=== PATIENT | male | born 1940 ===

== ENCOUNTER 2017-05-03 16:41 | Emergency (ER) | payer MEDICARE, OTHER ==
[2017-05-03] MEDS ORDERED: DIPH,PERTUS(ACELL)TETVAC-LF 0.5 ML VIAL IM ONE (17:23)
--- NOTE | 2017-05-03 17:25 | ED ---
Lower Extremity Injury HPI - General Chief Complaint: Extremity Injury, Lower Stated Complaint: Toe Pain Source: patient Mode of arrival: wheelchair Limitations: physical limitation - History of Present Illness Initial Comments: Patient is a 76-year-old male who presents for evaluation after a car was wasted down onto his left toe. Past medical history as below. 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 A lift was lowering down a vehicle. It landed on his left toe. There is compression for several moments as the car was being lifted up. This occurred around 425. There is bleeding on the left first digit. Stable to walk on it. He was wearing soft toed lower first. The car did not cut through the shoe. He is on aspirin and Plavix as he has a coronary stent. Is currently bleeding. It is unknown when he got his last eat at. He denies any other associated symptoms including fevers, headaches, chest pain, shortness breath, cough, nausea or vomiting or diarrhea, pain or burning with urination. - Related Data Home Medications Medication Instructions Recorded Confirmed Aspirin 81 mg PO DAILY 05/03/17 05/03/17 Clopidogrel Bisulfate [Plavix] 75 mg PO DAILY 05/03/17 05/03/17 Lipitor (Unk Dose) 1 tab PO HS 05/03/17 05/03/17 Lisinopril [Zestril] 10 mg PO DAILY 05/03/17 05/03/17 Metoprolol Succinate [Toprol XL] 25 mg PO DAILY 05/03/17 05/03/17 Previous Rx's Medication Instructions Recorded Cephalexin [Keflex] 500 mg PO BID #14 capsule 05/03/17 Hydrocodone/Acetaminophen [Glasco 1 tab PO Q6HR PRN #10 tab 05/03/17 5-325] Allergies Allergy/AdvReac Type Severity Reaction Status Date / Time No Known Allergies Allergy Verified 05/03/17 16:46 Review of Systems ROS Statement: Those systems with pertinent positive or pertinent negative responses have been documented in the HPI. ROS Other: All systems not noted in ROS Statement are negative. Past Medical History Past Medical History: Hyperlipidemia History of Any Multi-Drug Resistant Organisms: None Reported Past Surgical History: Heart Catheterization With Stent Past Psychological History: No Psychological Hx Reported Smoking Status: Current some day smoker Past Alcohol Use History: None Reported Past Drug Use History: None Reported General Exam Limitations: physical limitation General appearance: alert, in no apparent distress Head exam: Present: atraumatic, normocephalic, normal inspection Eye exam: Present: normal appearance, PERRL, EOMI. Absent: scleral icterus, conjunctival injection, periorbital swelling ENT exam: Present: normal exam, mucous membranes moist Neck exam: Present: normal inspection. Absent: tenderness, meningismus, lymphadenopathy Respiratory exam: Present: normal lung sounds bilaterally. Absent: respiratory distress, wheezes, rales, rhonchi, stridor Cardiovascular Exam: Present: regular rate, normal rhythm, normal heart sounds. Absent: systolic murmur, diastolic murmur, rubs, gallop, clicks GI/Abdominal exam: Present: soft, normal bowel sounds. Absent: distended, tenderness, guarding, rebound, rigid Extremities exam: Present: normal inspection, full ROM, normal capillary refill , other (Pain to the first digit on the left toe. Small degree of blood oozing from a small superficial laceration. Full range of motion of the first and second digits of the left toe. Sensation intact. Good cap refill.). Absent: tenderness, pedal edema, joint swelling, calf tenderness Back exam: Present: normal inspection Neurological exam: Present: alert, oriented X3, CN II-XII intact Psychiatric exam: Present: normal affect, normal mood Skin exam: Present: warm, dry, intact, normal color, other (1 cm laceration at the nailbed of the first digit.). Absent: rash Course Vital Signs 05/03/17 05/03/17 16:46 18:21 Temperature 97.0 F L 97.3 F L Pulse Rate 89 82 Respiratory 17 18 Rate Blood Pressure 129/74 110/60 O2 Sat by Pulse 93 L 96 Oximetry Procedures - Laceration Laceration #1 Consent Obtained: verbal consent Time Out Performed: Yes Indication: laceration Site: other (First digit left toe) Description: linear Depth: simple, single layer Anesthetic Used: lidocaine 1% Anesthesia Technique: nerve block Pre-repair: irrigated extensively Type of Sutures: nylon Size of Sutures: 4-0 Number of Sutures: 2 Technique: simple, interrupted Patient Tolerated Procedure: well, no complications Additional Comments: Placed 2, 4-0 nylon sutures with good wound approximation. Improved bleeding. Still some oozing at the base of the nail bed. Bacitracin over the wound. Compression dressing. Medical Decision Making - Medical Decision Making -Patient is a 76-year-old male presents for evaluation after a car was low were down on his left first and second digits. Small degree of bruising. Small superficial laceration. Will order plain films of the toe and the foot. 1900: Patient has distal phalanx fracture of the first and second digits of the left foot. nerve block of the first digit on the left foot. Injected 2 mL of 1 % lidocaine. Trephinated the left toe due to the development of a sublingual hematoma. thoroughly irrigated the laceration with 1 L of normal saline. Repaired a superficial laceration to left first digit with 2, 4-0 nylon sutures. Placed bacitracin over. Wrapped and rain taped the first 2 digits. Walking boot. discussed wound care with the patient. Discussed signs and symptoms of cellulitis and infection. We'll discharge home with Keflex. Glasco for pain. Elevate the left leg as much as possible. Discussed that he cannot take this if he is driving or operating any heavy machinery. He voiced understanding. We'll provide orthopedics for follow-up. Also encouraged him to follow up with his primary care physician. Discussed signs and symptoms on when to return to the emergency department for further evaluation. He is comfortable with discharge home and will follow-up. Disposition Clinical Impression: Toe fracture, left Disposition: HOME SELF-CARE Condition: Good Instructions: Care For Your Stitches (ED), Toe Fracture (ED) Prescriptions: Cephalexin [Keflex] 500 mg PO BID #14 capsule Hydrocodone/Acetaminophen [Glasco 5-325] 1 tab PO Q6HR PRN #10 tab PRN Reason: Pain Referrals: Nonstaff,Physician [Primary Care Provider] - 1-2 days En Steel DO [Doctor of Osteopathic Medicine] - 1-2 days Agustin Collins MD [REFERRING] - 1-2 days
--- NOTE | 2017-05-03 18:10 | XR ---
EXAMINATION TYPE: XR foot complete LT DATE OF EXAM: 05/03/2017 COMPARISON: NONE HISTORY: Pain TECHNIQUE: 3 views FINDINGS: There is a comminuted fracture of the distal phalanx of the big toe. There is a 4 mm chip f racture of the lateral base of the distal phalanx of the second toe. There is mild soft tissue swelli ng. There is spurring at the first MP joint. There is degenerative cyst in the first metatarsal head. IMPRESSION: Comminuted fracture distal phalanx of the big toe. Fracture line also extends to the IP j oint. Small chip fracture of the distal phalanx of the second toe.
--- NOTE | 2017-05-03 18:14 | XR ---
EXAMINATION TYPE: XR toes LT DATE OF EXAM: 05/03/2017 COMPARISON: NONE HISTORY: Trauma pain TECHNIQUE: 3 views FINDINGS: 3 views of the left big toe were obtained and show comminuted fracture of the distal phalan x of the big toe that includes the tuft and the base. There is mild soft tissue swelling. I see no ra diopaque foreign body. There is a fracture line that extends to the IP joint. There is a 3 mm chip fracture of the lateral base of the distal phalanx of the second toe as well. IMPRESSION: Fractures of the distal phalanx of the first and second toes as above. No significant dis placement.
[2017-05-03 18:24] VITALS: BP 110/60; PULSE 82; RESP 18; TEMP 97.3
== END 2017-05-03 19:29 | disposition home or self-care (01) ==
LOC: EC 16:41
DX: S92.422A Displaced fracture of distal phalanx of left great toe, initial encounter for closed fracture (principal); S92.532A Displaced fracture of distal phalanx of left lesser toe(s), initial encounter for closed fracture; S91.212A Laceration without foreign body of left great toe with damage to nail, initial encounter; E78.5 Hyperlipidemia, unspecified; F17.200 Nicotine dependence, unspecified, uncomplicated; Z23 Encounter for immunization; Z79.01 Long term (current) use of anticoagulants; Z79.82 Long term (current) use of aspirin; Z79.899 Other long term (current) drug therapy; W20.8XXA Other cause of strike by thrown, projected or falling object, initial encounter; Y99.0 Civilian activity done for income or pay; Y92.69 Other specified industrial and construction area as the place of occurrence of the external cause
CPT/HCPCS: 12001; 90471; 90715; 99283